=== PATIENT | female | born 1980 | race Caucasian/White ===

== ENCOUNTER 2020-01-16 15:27 | Emergency (ER) | payer OTHER ==
[2020-01-16 17:14] LABS: Absolute Lymphocytes (CBC) 2.3 K/uL (0.7-4.9); Basophils % 0.8 % (0-1.3); Hematocrit 38.6 % (36.0-45.0); Lymphocytes % 41.1 % (15.3-44.8); MPV 7.6 fL (7.6-11.3); Protime INR 1.02; RBC Red Blood Cell Count 4.33 M/uL (3.86-4.86)
--- NOTE | 2020-01-16 17:20 | RAD REPORT ---
EXAM DESCRIPTION: Fox Single View01/16/2020 5:04 pm CLINICAL HISTORY: cough COMPARISON: none FINDINGS: The lungs appear clear of acute infiltrate. The heart is normal size IMPRESSION: No acute abnormalities displayed
--- NOTE | 2020-01-16 17:25 | RAD REPORT ---
EXAM DESCRIPTION: CT - Head Brain Wo Cont - 01/16/2020 4:56 pm CLINICAL HISTORY: Alteration of awareness/confusion COMPARISON: None TECHNIQUE: Computed axial tomography of the head was obtained. IV contrast was not requested. All CT scans are performed using dose optimization technique as appropriate and may include automated exposure control or mA/KV adjustment according to patient size. FINDINGS: An intracranial bleed is not seen . The ventricles are normal in caliber. No extra-axial fluid collection is noted. Fluid within the sinuses/ mastoids is not seen. IMPRESSION: No acute intracranial abnormality is seen. If patient's symptoms persist MRI of the bra in would be recommended.
[2020-01-16 17:35] LABS: ALT/SGPT 23 U/L (12-78); AST/SGOT 18 U/L (15-37); Alkaline Phosphatase 69 U/L (45-117); BUN Blood Urea Nitrogen 10 mg/dL (7-18); Bicarbonate 27 mmol/L (21-32); Bilirubin Direct < 0.1 mg/dL (0-0.2); Bilirubin Total 0.3 mg/dL (0.2-1.0); Glucose Level 82 mg/dL (74-106); Magnesium 2.3 mg/dL (1.8-2.4); NT PRO-BNP 13 pg/mL (<125); Potassium 3.6 mmol/L (3.5-5.1); Protein, Total 8.1 g/dL (6.4-8.2); Sodium Level 139 mmol/L (136-145); Troponin (Emerg Dept Use Only) < 0.02 ng/mL (0.0-0.045)
--- NOTE | 2020-01-16 18:08 | RAD REPORT ---
EXAM DESCRIPTION: MRI - Brain Wo Cont - 01/16/2020 5:52 pm CLINICAL HISTORY: Slurred speech COMPARISON: Head CT January 16, 2020 TECHNIQUE: Axial, sagittal, and coronal magnetic images of the brain were obtained. Contrast was not requested FINDINGS: No abnormal signal is present within the brain. Diffusion-weighted/ADC mapping does not reveal evidence of acute infarction. The ventricles are normal caliber. An extra-axial fluid collection is not present Fluid within the sinuses/mastoids is not noted. Mild chronic maxillary sinusitis IMPRESSION: No acute abnormality is displayed
--- NOTE | 2020-01-16 18:14 | EDPHYS ---
Physician Documentation [facility] Name: Leatha Levine Age: 40 yrs Sex: Female : 1980 Arrival Date: 01/16/2020 Time: 15:31 Bed 15 Private MD: ED Physician Rick Nunez HPI: 01/15 16:22 This 40 yrs old Female presents to ER via Ambulatory with complaints of High m Blood Pressure. 16:22 The patient has elevated blood pressure and discovered this physical therapy. Onset: jm The symptoms/episode began/occurred gradually, 1 month(s) ago. Modifying factors:. Associated signs and symptoms: Pertinent positives: lightheadedness, weakness. This is a 40 year old female with a history of COPD that presents to the ED with complaints of 1 month of fatigue which the patient describes as feeling "drunk" the episodes are intermittent. Patient states she was at physical therapy and was not feeling well, BP taken there was elevated. Patient states she has also had episodes of losing thoughts and difficulty findings words for the past 2 days. Patient also complains of 10 days of cough which are different in character to episodes of COPD. . Historical: - Allergies: 15:43 No Known Allergies; ll1 - PMHx: 15:43 Asthma; COPD; ll1 - PSHx: 15:43 Hysterectomy; ll1 - Immunization history:: Flu vaccine is not up to date. - Social history:: Smoking status: Patient/guardian denies using tobacco, Stopped _ months ago 11. ROS: 16:22 Cardiovascular: Negative for chest pain, palpitations, and edema. jmm 16:22 Constitutional: Positive for fatigue. 16:22 Respiratory: Positive for cough. 16:22 Neuro: Positive for weakness. 16:22 All other systems are negative. Exam: 16:22 Constitutional: This is a well developed, well nourished patient who is awake, alert, jmm and in no acute distress. Head/Face: atraumatic. Eyes: EOMI, no conjunctival erythema appreciated ENT: Moist Mucus Membranes Neck: Trachea midline, Supple Chest/axilla: Normal chest wall appearance and motion. Cardiovascular: Regular rate and rhythm. No edema appreciated Respiratory: Normal respirations, no respiratory distress appreciated Abdomen/GI: Non distended, soft Back: Normal ROM Skin: General appearance color normal MS/ Extremity: Moves all extremities, no obvious deformities appreciated, no edema noted to the lower extremities Neuro: Awake and alert, normal gait Psych: Behavior is normal, Mood is normal, Patient is cooperative and pleasant 17:01 ECG was reviewed by the Attending Physician. [facility] Vital Signs: 15:40 BP 124 / 98; Pulse 75; Resp 17; Temp 97.1; Pulse Ox 100% ; Weight 67.59 kg; Height 5 ll1 ft. 2 in. (157.48 cm); Pain 6/10; 17:06 BP 137 / 104; Pulse 75; Resp 15; Pulse Ox 100% on R/A; Pain 0/10; ss 15:40 Body Mass Index 27.25 (67.59 kg, 157.48 cm) ll1 MDM: 16:22 Patient medically screened. [facility] 18:12 Data reviewed: vital signs, nurses notes. Counseling: I had a detailed discussion with carrie the patient and/or guardian regarding: the historical points, exam findings, and any diagnostic results supporting the discharge/admit diagnosis, lab results, radiology results, the need for outpatient follow up, to return to the emergency department if symptoms worsen or persist or if there are any questions or concerns that arise at home. ED course: Patient is alert and non toxic in appearance in the ED. Imaging studies negative for an acute process. Patient is advised to follow up with a pcp and otherwise given strict return precautions. Patient understood and agrees with the plan of care. . 01/15 16:23 Order name: Basic Metabolic Panel; Complete Time: 17:49 [facility] 01/15 16:23 Order name: CBC with Diff; Complete Time: 17:31 [facility] 01/15 16:23 Order name: LFT's; Complete Time: 17:49 [facility] 01/15 16:23 Order name: Magnesium; Complete Time: 17:49 [facility] 01/15 16:23 Order name: NT PRO-BNP; Complete Time: 17:49 [facility] 01/15 16:23 Order name: PT-INR; Complete Time: 17:31 [facility] 01/15 16:23 Order name: Troponin (emerg Dept Use Only); Complete Time: 17:49 [facility] 01/15 16:23 Order name: XRAY Chest (1 view); Complete Time: 17:31 [facility] 01/15 16:23 Order name: EKG; Complete Time: 16:24 [facility] 01/15 16:23 Order name: Cardiac monitoring; Complete Time: 17:05 [facility] 01/15 16:23 Order name: EKG - Nurse/Tech; Complete Time: 17:05 [facility] 01/15 16:23 Order name: CT Head Brain wo Cont; Complete Time: 17:31 [facility] 01/15 16:27 Order name: MRI - Brain Wo Cont; Complete Time: 18:11 [facility] 01/15 16:40 Order name: Urine Dipstick--Ancillary (enter results) bd 01/15 16:23 Order name: IV Saline Lock; Complete Time: 17:06 [facility] 01/15 16:23 Order name: Labs collected and sent; Complete Time: 17:06 [facility] 01/15 16:23 Order name: O2 Per Protocol; Complete Time: 16:26 [facility] 01/15 16:23 Order name: O2 Sat Monitoring; Complete Time: 16:26 [facility] 01/15 16:23 Order name: Urine Dipstick-Ancillary (obtain specimen); Complete Time: 16:35 [facility] 01/15 16:23 Order name: Urine Test (obtain specimen); Complete Time: 16:35 jmm EC:01 Rate is 70 beats/min. Rhythm is regular. QRS [place] is Normal. CO interval is normal. QRS jmm interval is normal. QT interval is normal. No Q waves. T waves are Flattened in leads III, aVF. No ST changes noted. Reviewed by me. Administered Medications: No medications were administered Disposition: 01/16 06:22 Co-signature as Attending Physician, Rick Nunez MD I agree with the assessment and kdr plan of care. Disposition: 01/16/20 18:14 Discharged to Home. Impression: Elevated Blood Pressure, Malaise and fatigue, Acute bronchitis. - Condition is Stable. - Discharge Instructions: Fatigue. - Prescriptions for Medrol (Ramana) 4 mg Oral Tablets, Dose Pack - take 1 tablet by ORAL route as directed - follow package instructions; 1 packet. - Medication Reconciliation Form, Thank You Letter, Antibiotic Education, Prescription Opioid Use form. - Follow up: Private Physician; When: 2 - 3 days; Reason: Recheck today's complaints, Continuance of care, Re-evaluation by your physician. Signatures: Dispatcher [employer] Rick Prado MD MD kdr Mickail Joey, PA PA m Flor Medellin, BRAN RN ss Gen Sahu, RN RN ll1 Corrections: (The following items were deleted from the chart) 01/15 18:14 18:14 01/16/2020 18:14 Discharged to Home. Impression: Elevated Blood Pressure; Malaise jmm and fatigue. Condition is Stable. Forms are Medication Reconciliation Form, Thank You Letter, Antibiotic Education, Prescription Opioid Use. Follow up: Private Physician; When: 2 - 3 days; Reason: Recheck today's complaints, Continuance of care, Re-evaluation by your physician. [facility] 18:33 18:14 01/16/2020 18:14 Discharged to Home. Impression: Elevated Blood Pressure; Malaise ss and fatigue; Acute bronchitis. Condition is Stable. Discharge Instructions: Fatigue. Prescriptions for Medrol (Ramana) 4 mg Oral Tablets, Dose Pack - take 1 tablet by ORAL route as directed - follow package instructions; 1 packet. and Forms are Medication Reconciliation Form, Thank You Letter, Antibiotic Education, Prescription Opioid Use. Follow up: Private Physician; When: 2 - 3 days; Reason: Recheck today's complaints, Continuance of care, Re-evaluation by your physician. gregory
--- NOTE | 2020-01-16 18:14 | ER ---
Nurse's Notes [facility] Name: Leatha Levine Age: 40 yrs Sex: Female : 1980 Arrival Date: 01/16/2020 Time: 15:31 Bed 15 Private MD: Diagnosis: Elevated Blood Pressure;Malaise and fatigue;Acute bronchitis Presentation: 01/15 15:40 Chief complaint: Patient states: Was going for PT today. BP was 160/104. Friend has ll1 noticed she is having trouble completing thoughts for a couple days. Cough for 10 days. Coronavirus screen: Client denies travel out of the [place] in the last 14 days. cough unrelated to allergies, Client presents with at least one sign or symptom that may indicate coronavirus-19. Standard/surgical mask placed on the client. Ebola Screen: Patient denies travel to an Ebola-affected area in the 21 days before illness onset. Initial Sepsis Screen: Does the patient meet any 2 criteria? No. Patient's initial sepsis screen is negative. Does the patient have a suspected source of infection? No. Patient's initial sepsis screen is negative. Risk Assessment: Do you want to hurt yourself or someone else? Patient reports no desire to harm self or others. Onset of symptoms was January 16, 2020. 15:40 Method Of Arrival: Ambulatory ll1 15:40 Acuity: UDAY 3 ll1 Historical: - Allergies: 15:43 No Known Allergies; ll1 - PMHx: 15:43 Asthma; COPD; ll1 - PSHx: 15:43 Hysterectomy; ll1 - Immunization history:: Flu vaccine is not up to date. - Social history:: Smoking status: Patient/guardian denies using tobacco, Stopped _ months ago 11. Screenin:10 Abuse screen: Denies threats or abuse. Denies injuries from another. Nutritional ss screening: No deficits noted. Tuberculosis screening: Never had TB. Fall Risk None identified. Assessment: 16:10 General: Appears in no apparent distress. comfortable, Behavior is calm, cooperative. ss Pain: Denies pain. Neuro: Level of Consciousness is awake, alert, obeys commands, Oriented to person, place, time, situation, Reports intermittent dizziness. Family member at bedside reports that she has noticed patient would has been having episodes of confusion for the past few days.. Cardiovascular: Capillary refill < 3 seconds is brisk in bilateral fingers. Respiratory: Airway is patent Respiratory effort is even, unlabored, Respiratory pattern is regular, symmetrical. GI: Patient currently denies diarrhea, nausea, vomiting. Derm: Skin is intact, is healthy with good turgor, Skin is pink, warm \T\ dry. normal. Musculoskeletal: Circulation, motion, and sensation intact. Range of motion: intact in all extremities, Swelling absent. 17:31 Reassessment: Pt to MRI VIA wheelchair. Vital Signs: 15:40 BP 124 / 98; Pulse 75; Resp 17; Temp 97.1; Pulse Ox 100% ; Weight 67.59 kg; Height 5 ll1 ft. 2 in. (157.48 cm); Pain 6/10; 17:06 BP 137 / 104; Pulse 75; Resp 15; Pulse Ox 100% on R/A; Pain 0/10; ss 15:40 Body Mass Index 27.25 (67.59 kg, 157.48 cm) ll1 ED Course: 15:30 Inserted saline lock: 20 gauge in right antecubital area, using aseptic technique. ss Blood collected. 15:31 Patient arrived in ED. ag5 15:42 Joey Gómez PA is PHCP. [facility] 15:42 Rick Nunez MD is Attending Physician. [facility] 15:43 Triage completed. ll1 15:43 Arm band placed on Patient placed in an exam room, on a stretcher. ll1 16:10 Patient has correct armband on for positive identification. Bed in low position. Call ss light in reach. 16:23 Flor Medellin, BRAN is Primary Nurse. ss 16:57 CT Head Brain wo Cont In Process Unspecified. EDMS 17:09 XRAY Chest (1 view) In Process Unspecified. EDMS 17:52 MRI - Brain Wo Cont In Process Unspecified. EDMS 18:32 No provider procedures requiring assistance completed. IV discontinued, intact, ss bleeding controlled, No redness/swelling at site. Pressure dressing applied. Administered Medications: No medications were administered Outcome: 18:14 Discharge ordered by . [facility] 18:32 Discharged to home ambulatory, with family. 18:32 Condition: good 18:32 Discharge instructions given to patient, family, Instructed on discharge instructions, follow up and referral plans. medication usage, Demonstrated understanding of instructions, follow-up care, medications, Prescriptions given X 1. 18:33 Patient left the ED. ss Signatures: Dispatcher [employer] EDMS Joey Gómez PA PA jmm Smirch, Shelby, RN RN Meliza Mosher ag5 Gen Sahu RN RN ll1
[2020-01-16 18:45] LABS: Urine Blood NEGATIVE (NEG); Urine Glucose NEGATIVE (NEG); Urine Protein NEGATIVE (NEG); Urine Specific Gravity <1.005 (1.005-1.030); Urine pH 5.5 (5.0-7.0)
[2020-01-16 19:05] VITALS: TEMP 97.1; O2SAT 100
[2020-01-16 19:07] VITALS: BP 137/104
--- NOTE | 2020-01-17 11:29 | EKG ---
Test Date: 2020-01-16 Test Time: 16:37:46 Director Clinical Operations: LAINA MEASUREMENT RESULTS: Intervals: Rate: 70 DE: 156 QRSD: 72 QT: 404 QTc: 436 [place]: P: 65 DE: 156 QRS: 44 T: 46 INTERPRETIVE STATEMENTS: Normal sinus rhythm Possible Left atrial enlargement Low voltage QRS Septal infarct, age undetermined Abnormal ECG No previous ECG available for comparison Electronically Signed On 01-17-20 11:27:11 CDT by King Sanders
== END 2020-01-16 18:33 | disposition home or self-care (01) ==
LOC: ER 15:27
DX: R03.0 Elevated blood-pressure reading, without diagnosis of hypertension (principal); J20.9 Acute bronchitis, unspecified; R53.81 Other malaise; R53.83 Other fatigue
CPT/HCPCS: 36415; 70450; 70551; 71045; 80048; 80076; 81003; 83735; 83880; 84484; 85025; 85610; 93005; 99284

== ENCOUNTER 2020-12-12 15:29 | Emergency (ER) | payer OTHER ==
[2020-12-12 17:10] LABS: Urine Blood Negative (Negative); Urine Glucose Negative (Negative); Urine Protein Negative (Negative); Urine Specific Gravity >=1.030 (1.005-1.030)
--- NOTE | 2020-12-12 18:48 | RAD REPORT ---
EXAM DESCRIPTION: CT - Head Brain W/Wo Con - 12/12/2020 6:39 pm CLINICAL HISTORY: Headache, blurry vision COMPARISON: No comparisons TECHNIQUE: All CT scans are performed using dose optimization technique as appropriate and may inclu de automated exposure control or mA/KV adjustment according to patient size. CT was performed with and without IV contrast FINDINGS: No intracranial hemorrhage, hydrocephalus or extra-axial fluid collection.No areas of brai n edema or evidence of midline shift. The paranasal sinuses and mastoids are clear. The calvarium is intact. IMPRESSION: No acute intracranial abnormality. No abnormal enhancement.
[2020-12-12 19:09] LABS: Absolute Lymphocytes (CBC) 2.1 K/uL (0.7-4.9); Basophils % 1.2 % (0-1.3); Hematocrit 37.8 % (36.0-45.0); Lymphocytes % 39.9 % (15.3-44.8); MPV 7.2 fL (7.6-11.3)
[2020-12-12 19:10] LABS: Urine Specific Gravity/Preg >1.030 (1.005-1.030)
[2020-12-12 19:24] LABS: BUN Blood Urea Nitrogen 9 mg/dL (7-18); Bicarbonate 26 mmol/L (21-32); Glucose Level 87 mg/dL (74-106); Potassium 3.5 mmol/L (3.5-5.1); Sodium Level 141 mmol/L (136-145)
--- NOTE | 2020-12-12 19:48 | EDPHYS ---
Physician Documentation [facility] Name: Leatha Levine Age: 40 yrs Sex: Female : 1980 Arrival Date: 12/12/2020 Time: 15:31 Bed 28 Private MD: [facility] ED Physician Riccardo Edward HPI: 12/12 18:33 This 40 yrs old Female presents to ER via Ambulatory with complaints of kdr Headache, Vision Problem. 18:33 The patient has had intermittent headaches and blurry vision for the past 4 to 6 kdr months. These complaints have been intermittent and have waxed and waned over that period of time. There are times when the symptoms are completely or nearly completely resolved. Other times when they are more prominent. After some discussion, she thought that they may have been related or exacerbated by steroid injections that she was getting to her low back at or around the time that the symptoms began. She is not acutely ill or toxic on initial evaluation.. Onset: The symptoms/episode began/occurred gradually, The last 4 to 6 months. Severity of symptoms: At their worst the symptoms were mild moderate today, in the emergency department the symptoms have improved mildly. The patient has experienced similar episodes in the past, chronically, and the symptoms today are exactly the same, There is no acute recent change in her complaints. They have persisted and given that she has not had any evaluation of these complaints, her PCP instructed her to come to the ED today. The patient has been recently seen by a physician: the patient's primary care provider. 18:33 Patient has complained of generalized left-sided headache with occasional sharp pain in kdr her left ear. She is also complained of blurry vision is bilateral. An additional complaint is of dark objects in the periphery of her eyes primarily her left eye, that again come and go without known precipitant. None of her complaints are new to recent history but rather have been transient and waxing and waning for some 4 to 6 months.. [employer]: 16:08 LMP N/A - Hysterectomy vg1 Historical: - Allergies: 16:08 No Known Allergies; vg1 - Home Meds: 16:08 Lyrica Oral [Active]; Plaquenil Oral [Active]; Effexor Oral [Active]; amlodipine oral vg1 [Active]; - PMHx: 16:08 Asthma; COPD; Mixed Connective Tissue Disease; vg1 - Immunization history:: Adult Immunizations up to date, Client reports receiving the 2nd dose of the Covid vaccine. - Social history:: Smoking status: Patient denies any tobacco usage or history of. ROS: 18:33 Constitutional: Negative for fever, chills, and weight loss, she has complained of kdr general malaise and fatigue Eyes: Negative for injury, pain, redness, and discharge, Neck: Negative for injury, pain, and swelling, Cardiovascular: Negative for chest pain, palpitations, and edema, Respiratory: Negative for shortness of breath, cough, wheezing, and pleuritic chest pain, Abdomen/GI: Negative for abdominal pain, nausea, vomiting, diarrhea, and constipation, Back: Negative for injury and pain, : Negative for injury, bleeding, discharge, and swelling, MS/Extremity: Negative for injury and deformity, Skin: Negative for injury, rash, and discoloration, Psych: Negative for depression, anxiety, suicide ideation, homicidal ideation, and hallucinations, Allergy/Immunology: Negative for hives, rash, and allergies, Endocrine: Negative for neck swelling, polydipsia, polyuria, polyphagia, and marked weight changes, Hematologic/Lymphatic: Negative for swollen nodes, abnormal bleeding, and unusual bruising. 18:33 Neuro: Positive for headache, visual changes, weakness. Exam: 18:33 Constitutional: This is a well developed, well nourished patient who is awake, alert, kdr and in no acute distress. Head/Face: Normocephalic, atraumatic. Eyes: Pupils equal round and reactive to light, extra-ocular motions intact. Lids and lashes normal. Conjunctiva and sclera are non-icteric and not injected. Cornea within normal limits. Periorbital areas with no swelling, redness, or edema. Neck: Trachea midline, no thyromegaly or masses palpated, and no cervical lymphadenopathy. Supple, full range of motion without nuchal rigidity, or vertebral point tenderness. No Meningismus. Chest/axilla: Normal chest wall appearance and motion. Nontender with no deformity. No lesions are appreciated. Cardiovascular: Regular rate and rhythm with a normal S1 and S2. No gallops, murmurs, or rubs. Normal PMI, no JVD. No pulse deficits. Respiratory: Lungs have equal breath sounds bilaterally, clear to auscultation and percussion. No rales, rhonchi or wheezes noted. No increased work of breathing, no retractions or nasal flaring. Abdomen/GI: Soft, non-tender, with normal bowel sounds. No distension or tympany. No guarding or rebound. No evidence of tenderness throughout. Back: No spinal tenderness. No costovertebral tenderness. Full range of motion. Skin: Warm, dry with normal turgor. Normal color with no rashes, no lesions, and no evidence of cellulitis. MS/ Extremity: Pulses equal, no cyanosis. Neurovascular intact. Full, normal range of motion. Neuro: Awake and alert, GCS 15, oriented to person, place, time, and situation. Cranial nerves II-XII grossly intact. Motor strength 5/5 in all extremities. Sensory grossly intact. Cerebellar exam normal. Normal gait. Psych: Awake, alert, with orientation to person, place and time. Behavior, mood, and affect are within normal limits. Vital Signs: 16:05 BP 139 / 86; Pulse 90; Resp 16; Temp 97.8; Pulse Ox 99% ; Weight 68.04 kg; Height 5 ft. vg1 2 in. (157.48 cm); Pain 5/10; 17:12 BP 121 / 93; Pulse 90; Resp 21; Pulse Ox 97% on R/A; Pain 7/10; ld1 18:53 BP 125 / 88; Pulse 90; Resp 24; Pulse Ox 99% on R/A; ld1 19:39 BP 129 / 90; Pulse 89 RA; Resp 20; Temp 98.5(O); Pulse Ox 100% on R/A; kh1 16:05 Body Mass Index 27.44 (68.04 kg, 157.48 cm) vg1 MDM: 19:04 Patient medically screened. pkl 19:32 Data reviewed: vital signs, nurses notes, lab test result(s), radiologic studies, CT pkl scan. ED course: Discussed lab and CT Scan results with patient. Advised to follow up with Agronomy Supervisor for her visual problem and Neurologist for her headache. Patient understood instructions. 12/12 17:10 Order name: Urine Dipstick-Ancillary EDMS 12/12 17:10 Order name: Urine --Ancillary (enter results); Complete Time: 19:24 mt 12/12 18:10 Order name: CT Head Brain w/wo Con; Complete Time: 19:05 kdr 12/12 18:10 Order name: CBC with Diff; Complete Time: 19:24 kdr 12/12 18:10 Order name: Chem 7; Complete Time: 19:25 kdr 12/12 18:47 Order name: CREATININE WHOLE BLOOD; Complete Time: 19:05 EDMS 12/12 18:38 Order name: Misc. Order: Visual acuity ; Complete Time: 19:42 kdr Administered Medications: 16:55 Not Given (Physician Discretion): Methotrexate 75 mg IM once ld1 Disposition Summary: 12/12/20 19:48 Discharge Ordered Location: Home pkl Condition: Stable pkl Diagnosis - Visual disturbance. Acute headache pkl Followup: pkl - With: Ky Solitario MD - When: 2 - 3 days - Reason: Re-evaluation by your physician Discharge Instructions: - Discharge Summary Sheet pkl Forms: - Medication Reconciliation Form pkl - Thank You Letter pkl - Antibiotic Education pkl - Prescription Opioid Use pkl Prescriptions: - promethazine 25 mg Oral Tablet - take 1 tablet by ORAL route 2 times per day As needed; 12 tablet; Refills: 0, pkl Product Selection Permitted Signatures: Dispatcher [employer] Riccardo Henson MD MD pkl Rick Nunez MD MD kdr Garcia, Victoria, RN RN vg1 Reshma Chow RN ld1
--- NOTE | 2020-12-12 19:48 | ER ---
Nurse's Notes [facility] Name: Leatha Levine Age: 40 yrs Sex: Female : 1980 Arrival Date: 12/12/2020 Time: 15:31 Bed 28 Private MD: Neal Carter Diagnosis: Visual disturbance. 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 For vg1 the past two months has had a constant headache with double and blurry vision. Also c/o chest pain and Left ear pain. Pt states NV. Coronavirus screen: Vaccine status: Patient reports receiving the 2nd dose of the covid vaccine. Ebola Screen: Patient negative for fever greater than or equal to 101.5 degrees Fahrenheit, and additional compatible Ebola Virus Disease symptoms. Initial Sepsis Screen: Does the patient meet any 2 criteria? No. Patient's initial sepsis screen is negative. Does the patient have a suspected source of infection? No. Patient's initial sepsis screen is negative. Risk Assessment: Do you want to hurt yourself or someone else? Patient reports no desire to harm self or others. Onset of symptoms was September 26, 2020. 16:05 Method Of Arrival: Ambulatory vg1 16:05 Acuity: UDAY 3 vg1 Triage Assessment: 16:08 Headache History: The patient has had previous headaches and this one is different than vg1 previous episodes. General: Appears in no apparent distress. comfortable, Behavior is calm, cooperative. Pain: Complains of pain in head Pain currently is 5 out of 10 on a pain scale. Pain began about two months ago Also complains of nausea. Neuro: Level of Consciousness is awake, alert, obeys commands, Oriented to person, place, time, situation. 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 - Social history:: Smoking status: Patient denies any tobacco usage or history of. Screenin:15 Abuse screen: Denies threats or abuse. Denies injuries from another. Nutritional ld1 screening: No deficits noted. Tuberculosis screening: No symptoms or risk factors identified. Fall Risk None identified. Assessment: 17:12 General: Appears in no apparent distress. comfortable, Behavior is calm, cooperative, ld1 appropriate for age. Pain: Complains of pain in left ear and mid-sternal area Pain does not radiate. Pain currently is 7 out of 10 on a pain scale. Quality of pain is described as throbbing, Pain began 2-3 days ago. Is continuous. Neuro: Level of Consciousness is awake, alert, obeys commands, Oriented to person, place, time, situation. Neuro: Reports dizziness, headache. Cardiovascular: Capillary refill < 3 seconds Patient's skin is warm and dry. Rhythm is regular. Respiratory: Airway is patent Respiratory effort is even, unlabored, Respiratory pattern is regular, symmetrical. GI: Abdomen is flat, non-distended. GI: : No signs and/or symptoms were reported regarding the genitourinary system. EENT: Reports blurred vision. Derm: No signs and/or symptoms reported regarding the dermatologic system. Musculoskeletal: No signs and/or symptoms reported regarding the musculoskeletal system. 18:53 Reassessment: Patient appears in no apparent distress at this time. No changes from ld1 previously documented assessment. Patient and/or family updated on plan of care and expected duration. Pain level reassessed. Vital Signs: 16:05 BP 139 / 86; Pulse 90; Resp 16; Temp 97.8; Pulse Ox 99% ; Weight 68.04 kg; Height 5 ft. vg1 2 in. (157.48 cm); Pain 5/10; 17:12 BP 121 / 93; Pulse 90; Resp 21; Pulse Ox 97% on R/A; Pain 7/10; ld1 18:53 BP 125 / 88; Pulse 90; Resp 24; Pulse Ox 99% on R/A; ld1 19:39 BP 129 / 90; Pulse 89 RA; Resp 20; Temp 98.5(O); Pulse Ox 100% on R/A; kh1 16:05 Body Mass Index 27.44 (68.04 kg, 157.48 cm) vg1 ED Course: 15:31 Patient arrived in ED. mr 15:32 Neal Carter DO is Private Physician. mr 16:08 Triage completed. vg1 16:08 Arm band placed on. vg1 16:09 Rick Nunez MD is Attending Physician. kdr 17:11 Urine --Ancillary (enter results) Sent. mh5 17:11 Urine Dipstick-Ancillary Sent. mh5 17:15 Patient has correct armband on for positive identification. Bed in low position. Call ld1 light in reach. Side rails up X2. environmental monitoring specialist on. Pulse ox on. NIBP on. Door closed. Noise minimized. Warm blanket given. 17:15 No provider procedures requiring assistance completed. ld1 18:39 CT Head Brain w/wo Con In Process Unspecified. EDMS 18:59 Inserted saline lock: 22 gauge in left antecubital area, using aseptic technique. Blood mh5 collected. 19:04 Attending Physician role handed off by Rick Nunez MD pk 19:04 Riccardo Edward MD is Attending Physician. pkl 19:10 Patient Visual acuity exam completed OD 20/20; OS 20/20; OU 20/20; Dr. Edward notified of kh1 results \T\ in to see pt. 19:22 Hailee Epps is Primary Nurse. kh1 19:46 Ky Solitario MD is Referral Physician. pkl 20:07 IV discontinued, intact, bleeding controlled, No redness/swelling at site. ld1 Administered Medications: 16:55 Not Given (Physician Discretion): Methotrexate 75 mg IM once ld1 Outcome: 19:48 Discharge ordered by . pkl 20:07 Discharged to home ambulatory, with family. ld1 20:07 Condition: stable 20:07 Discharge instructions given to patient, family, Instructed on discharge instructions, follow up and referral plans. medication usage, Demonstrated understanding of instructions, follow-up care, medications, Prescriptions given X 1. 20:07 Patient left the ED. ld1 Signatures: Dispatcher [employer] EDMS Riccardo Edward MD MD pkl Rittger, Kevin, MD MD kdr Rivera, Altagracia Geurrero 5 Aleja Nicolas, BRAN RN 1 Reshma Chow RN RN ld1 Hailee Epps [facility]
[2020-12-12 21:20] VITALS: BP 129/90; TEMP 98.5; O2SAT 100
== END 2020-12-12 20:07 | disposition home or self-care (01) ==
LOC: ER 15:29
DX: R51.9 Headache, unspecified (principal); J44.9 Chronic obstructive pulmonary disease, unspecified
CPT/HCPCS: 36415; 80048; 81003; 81025; 82565; 85025; 99284